=== PATIENT | female | born 2000 | race Hispanic/Latino ===

== ENCOUNTER 2020-08-22 13:53 | Emergency (ER) | payer OTHER, SELFPAY ==
[2020-08-22] MEDS ORDERED: Ketorolac Tromethamine 30 MG/ML VIAL ONE (14:31)
== END 2020-08-22 15:49 | disposition home or self-care (01) ==
LOC: CSHERS 13:53
DX: S16.1XXA Strain of muscle, fascia and tendon at neck level, initial encounter (principal); R07.89 Other chest pain; M25.551 Pain in right hip; V89.2XXA Person injured in unspecified motor-vehicle accident, traffic, initial encounter
CPT/HCPCS: 71045; 72170; 96374; J1885